=== PATIENT | female | born 1935 | race Caucasian/White ===

== ENCOUNTER 2017-01-02 11:48 | Emergency (ER) | payer MEDICARE, OTHER ==
[~2017-01-02] VITALS: Ht 152.4 cm; Wt 53.1 kg
[~2017-01-02 11:48] MED LIST: ACET-2429 PO; AMIO200T2 PO; APIX2.5T PO; ASP81TEC PO; ATEN25TA PO; BONIVA; CA C1TAB75 PO; CALC-80 PO; CAND1TAB4; CHOL400C9 PO; CHONDROITIN PO; CLIN300C11 PO; CLON-378 PO; CLOP75TA PO; CLOP75TA28 PO; DOCU-161 PO; GABA-490 PO; GBPN100C PO; GLUC1CAP37 PO; GLUC500C2 PO; LOSA1TAB69 PO; MULT-10 PO; NAPR220T76; OMG1KC PO; PANT40TA2 PO; POTASSIUM; ROSU5TAB; STRESS TAB; TRAM50TA2 PO; VIT E PO; VITA400C60 PO
[2017-01-02] MEDS ORDERED: TETANUS,DIPTH,PERTUSS P/F (BOOSTRIX) 0.5 ML VIAL IM ONE (12:00)
[2017-01-02] MEDS ORDERED: LIDOCAINE/EPI 1%-1:100,000 (XYLOCAINE) 20ML INJ ONE (12:00)
--- NOTE | 2017-01-02 12:07 | ED Fall/Injury ---
General Chief Complaint: Trauma-Non Activation Stated Complaint: FALL/HEAD LAC Source: patient Exam Limitations: no limitations (KVNG ALVARADO MD) History of Present Illness Time seen by provider: 11:52 Initial Comments Here with fall at about 1030 this morning off her back step. She reports hitting the left side of her head. She is unsure of loss of consciousness. Does complain of some left-sided neck pain but states she normally has neck pain. She thinks that she was dazed and really is not sure about loss of consciousness. Denies other pain or injury. Unsure of tetanus status. She is on Eliquis Occurred: this morning Severity: moderate Injuries/Pain Location: head Context: lost balance Loss of Consciousness: dazed Associated Symptoms (Fall): No Abdominal Pain, No Chest Pain, No Confusion, No Lightheadedness, No Muscle Spasms, Neck Pain, No Shortness of Air (KVNG ALVARADO MD) Allergies and Home Medications Allergies Coded Allergies: Penicillins (Unverified Allergy, Mild, 07/16/09) Sulfa (Sulfonamide Antibiotics) (Unverified Allergy, Unknown, 12/14/15) Home Medications Amiodarone HCl 200 Mg Tablet, 200 MG PO BID, #60 Prescribed by: GLENYS BARTLETT on 01/06/16 1254 Apixaban 2.5 Mg Tablet, 2.5 MG PO BID, #60 Prescribed by: GLENYS BARTLETT on 01/06/16 1254 Atenolol 25 Mg Tablet, 25 MG PO HS, (Reported) Gabapentin 400 Mg Capsule, 400 MG PO HS, (Reported) Hydrochlorothiazide 12.5 Mg Tablet, #30 (Reported) Pantoprazole Sodium 40 Mg Tablet.dr, 40 MG PO BID, #60 Prescribed by: GLENYS BARTLETT on 01/06/16 1254 Potassium Chloride 10 Meq Tablet.er, #30 (Reported) Constitutional: see HPI, No chills, No fever Eyes: No Symptoms Reported Ears, Nose, Mouth, Throat: no symptoms reported Respiratory: no symptoms reported Cardiovascular: no symptoms reported Musculoskeletal: see HPI, No back pain, neck pain Skin: see HPI, lesions (KVNG ALVARADO MD) All Other Systems Reviewed Negative Unless Noted: Yes (KVNG ALVARADO MD) Past Elrmwsx-Uvlpdt-Ttxogy Hx Patient Social History Alcohol Use: Denies Use Recreational Drug Use: No Smoking Status: Never a Smoker Recent Foreign Travel: No Contact w/Someone Who Travel: No (KVNG ALVARADO MD) Immunizations Up To Date Tetanus Booster (TDap): More than 5yrs PED Vaccines UTD: No Date of Pneumonia Vaccine: Sep 03, 2011 Date of Influenza Vaccine: Jun 03, 2015 (KVNG ALVARADO MD) Seasonal Allergies Seasonal Allergies: No (KVNG ALVARADO MD) Surgeries HX Surgeries: Yes (stents in 07, LT SHOULDER) Surgeries: Hysterectomy, Orthopedic (KVNG ALVARADO MD) Respiratory Hx Respiratory Disorders: No (KVNG ALVARADO MD) Cardiovascular Hx Cardiac Disorders: Yes (stent placed in 2006) Cardiac Disorders: Atrial Fibrillation, Coronary Artery Disease (KVNG ALVARADO MD) Neurological Hx Neurological Disorders: Yes Neurological Disorders: TIA (KVNG ALVARADO MD) Reproductive System Hx Reproductive Disorders: No Sexually Transmitted Disease: No (KVNG ALVARADO MD) Genitourinary Hx Genitourinary Disorders: No (KVNG ALVARADO MD) Gastrointestinal Hx Gastrointestinal Disorders: No (KVNG ALVARADO MD) Musculoskeletal Hx Musculoskeletal Disorders: Yes Musculoskeletal Disorders: Arthritis (KVNG ALVARADO MD) Endocrine Hx Endocrine Disorders: No (KVNG ALVARADO MD) HEENT HX ENT Disorders: Yes HEENT Disorders: Cataract (KVGN ALVARADO MD) Cancer Hx Cancer: No (KVNG ALVARADO MD) Psychosocial Hx Psychiatric Problems: No (KVNG ALVARADO MD) Integumentary HX Skin/Integumentary Disorder: No (KVNG ALVARADO MD) Blood Transfusions Hx Blood Disorders: No (KVNG ALVARADO MD) Reviewed Nursing Assessment Reviewed/Agree w Nursing PMH: Yes (KVNG ALVARADO MD) Family Medical History Significant Family History: No Pertinent Family Hx Family Medial History: Arthritis 19 FATHER, Onset:Unknown Cardiovascular disease 19 FATHER, Onset:Unknown 19 MOTHER, Onset:Unknown Completed stroke 19 MOTHER, Onset:Unknown Diabetes mellitus 19 FATHER, Onset:Unknown (KVNG ALVARADO MD) Family Medial History: Arthritis 19 FATHER, Onset:Unknown Cardiovascular disease 19 FATHER, Onset:Unknown 19 MOTHER, Onset:Unknown Completed stroke 19 MOTHER, Onset:Unknown Diabetes mellitus 19 FATHER, Onset:Unknown (JOSÉ DURAN APRN) Physical Exam Vital Signs Vital Sign - Last 12Hours 01/02/17 11:57 Temp 97.8 Pulse 56 Resp 20 B/P (MAP) 143/71 Pulse Ox 99 O2 Delivery Room Air (JOSÉ DURAN APRN) Vital Signs Capillary Refill : (KVNG ALVARADO MD) General Appearance: WD/WN, no apparent distress HEENT: PERRL/EOMI, pharynx normal Neck: non-tender, full range of motion, supple, normal inspection Cardiovascular: regular rate, rhythm, no murmur Respiratory: chest non-tender, lungs clear, normal breath sounds Gastrointestinal: non tender, soft Back: normal inspection, no CVA tenderness, no vertebral tenderness Extremities: normal range of motion, non-tender Neurologic/Psychiatric: alert, oriented x 3 Skin: warm/dry, other (2 cm laceration to the left side of the scalp behind and above the ear.) (KVNG ALVARADO MD) Margarita Coma Score Best Eye Response: (4) Open Spontaneously Best Verbal Response: (5) Oriented Best Motor Response: (6) Obeys Commands (KVNG ALVARADO MD) Laceration Repair : Wound Location: Scalp Wound Length (cm): 2 Wound's Depth, Shape: linear Wound Explored: clean Irrigated w/ Saline (ccs): 20 Anesthesia: Lidocaine w/ Epi Volume Anesthetic (ccs): 2 Staple Repair: Stapler 35W Progress Anesthetized with 2 mL of 1 percent lidocaine with epinephrine. Scrubbed with saline and irrigated with saline. Then closed with 5 domonique. (JOSÉ DURAN APRN) Progress/Results/Core Measures Results/Orders My Orders Orders - JOSÉ DURAN APRN Dipht,Pertuss(Acell),Tet Adult (Boostrix (01/02/17 12:00) Lidocaine/Epi 1% 1:100,000 (Xylocaine /E (01/02/17 12:00) Ct Head/Cervical Spine Wo (01/02/17 11:59) (JOSÉ DURAN APRN) Vital Signs/I&O Vital Sign - Last 12Hours 01/02/17 01/02/17 11:57 12:33 Temp 97.8 97.8 Pulse 56 56 Resp 20 20 B/P (MAP) 143/71 143/71 (95) Pulse Ox 99 99 O2 Delivery Room Air Room Air (JOSÉ DURAN APRN) Progress Note : Progress Note Seen and evaluated. CT head and neck ordered. Tetanus shot ordered. Monitor patient. 1305: Wound closure by José Duran APRN. No acute findings on CT but chronic degenerative changes of the neck which would account for her chronic neck pain. Discharged home with return precautions. Patient and family verbalize understanding instructions and agreement with plan. I did discuss with the patient about following up with her primary care physician related to increasing falls. She states that she does fall sometimes that the family member reports that it seems to be more often recently. Patient states that she will follow-up. Copy of chart Dr. Bartlett. (KVNG ALVARADO MD) Diagnostic Imaging Diagonstic Imaging: CT Plain Films/CT/US/NM/MRI: c-spine, head Comments [place], [place] NAME: BRITTANEY [facility] REC#: [id number] PT STATUS: REG ER : 1935 PHYSICIAN: JOSÉ DURAN APRN ADMIT DATE: 01/02/17/ER Draft Date of Exam:01/02/17 CT HEAD/CERVICAL SPINE WO PROCEDURE: CT head and CT cervical spine without contrast. TECHNIQUE: Multiple contiguous axial images were obtained through the brain and cervical spine without the use of intravenous contrast. Sagittal and coronal reformations through the cervical spine were then performed. INDICATION: Laceration to the left side of the head. Headache, neck stiffness. FINDINGS: CT head: There is no intracranial hemorrhage, edema, or mass effect. No hydrocephalus. No extra-axial fluid collection. The calvarium, the paranasal sinuses, and orbits appear grossly unremarkable. CT cervical spine: There is straightening of the lordotic curvature. There is minimal anterior translation of C4 over C5 and minimal anterior translation of C7 over T1. The vertebral body heights are preserved. There is moderate disc height loss at C5-C6 and C6-C7 levels. Posterior osteophytes at these two levels are seen. There is satisfactory alignment of the lateral masses of C1 and C2 and of the atlantooccipital joints. There is ligamentous thickening and ossification seen along the posterior aspect of the dens with some bony erosions that may relate to inflammatory arthritis etiology. No fracture is seen. There is moderate/ severe foraminal stenosis bilaterally at C4-C5, C5-C6, and C6-C7 levels. IMPRESSION: CT head: Unremarkable exam. CT cervical spine: 1. Advanced degenerative changes. There are alignment abnormalities in the mid cervical spine levels which are probably degenerative. 2. There is ligamentous hypertrophy posterior to the upper aspect of the dens with ossification and mild erosions, may relate to inflammatory arthritis etiology. 3. No fracture seen. Dictated on workstation # [id number] Dict: 01/02/17 1224 Trans: 01/02/17 1243 [id number] Interpreted by: MARTÍNEZ MONACO MD Electronically signed by: (KVNG ALVARADO MD) Departure Impression Impression: Primary Impression: Scalp laceration Qualified Codes: S01.01XA - Laceration without foreign body of scalp, initial encounter Additional Impression: Head injury, acute Qualified Codes: S09.90XA - Unspecified injury of head, initial encounter Disposition: 01 HOME, SELF-CARE Condition: Stable Departure-Patient Inst. Decision time for Depature: 13:07 (KVNG ALVARADO MD) Referrals: GLENYS BARTLETT DO (PCP/Family) Primary Care Physician Patient Instructions: Laceration Repair With [place] (DC), Minor Head Injury ( DC) Add. Discharge Instructions: All discharge instructions reviewed with patient and/or family. Voiced understanding. [place] out in 7 days. You may use antibiotic ointment over wound for the next few days and then as needed. It is okay to shower but do not soak wound in a bathtub or other body of water. Follow-up with your DrDonn in a few days for recheck as needed. Return for worse pain, fever, swelling, weakness, vision or balance problems, breathing problems or other concerns as needed. You may continue home medications as directed. Copy Copies To 1: GLENYS BARTLETT TIMOTHY D MD January 02, 2017 12:07 JOSÉ DURAN APRN January 02, 2017 13:12
[2017-01-02] MEDS ORDERED: POTA10TA10 (12:10)
[2017-01-02] MEDS ORDERED: HYDR12.56 (12:10)
--- NOTE | 2017-01-02 12:44 | Diagnostic Imaging Report ---
PROCEDURE: CT head and CT cervical spine without contrast. TECHNIQUE: Multiple contiguous axial images were obtained through the brain and cervical spine without the use of intravenous contrast. Sagittal and coronal reformations through the cervical spine were then performed. INDICATION: Laceration to the left side of the head. Headache, neck stiffness. FINDINGS: CT head: There is no intracranial hemorrhage, edema, or mass effect. No hydrocephalus. No extra-axial fluid collection. The calvarium, the paranasal sinuses, and orbits appear grossly unremarkable. CT cervical spine: There is straightening of the lordotic curvature. There is minimal anterior translation of C4 over C5 and minimal anterior translation of C7 over T1. The vertebral body heights are preserved. There is moderate disc height loss at C5-C6 and C6-C7 levels. Posterior osteophytes at these two levels are seen. There is satisfactory alignment of the lateral masses of C1 and C2 and of the atlantooccipital joints. There is ligamentous thickening and ossification seen along the posterior aspect of the dens with some bony erosions that may relate to inflammatory arthritis etiology. No fracture is seen. There is moderate/ severe foraminal stenosis bilaterally at C4-C5, C5-C6, and C6-C7 levels. IMPRESSION: CT head: Unremarkable exam. CT cervical spine: 1. Advanced degenerative changes. There are alignment abnormalities in the mid cervical spine levels which are probably degenerative. 2. There is ligamentous hypertrophy posterior to the upper aspect of the dens with ossification and mild erosions, may relate to inflammatory arthritis etiology. 3. No fracture seen. Dictated by: Dictated on workstation # [id number]
[2017-01-02 13:31] VITALS: BP 132/84
== END 2017-01-02 13:30 | disposition home or self-care (01) ==
LOC: EDUNIT# 11:48 → ER 11:50
DX: S01.01XA Laceration without foreign body of scalp, initial encounter (principal); Z23 Encounter for immunization; M47.812 Spondylosis without myelopathy or radiculopathy, cervical region; M48.02 Spinal stenosis, cervical region; I25.10 Atherosclerotic heart disease of native coronary artery without angina pectoris; I48.2 Chronic atrial fibrillation; Z79.01 Long term (current) use of anticoagulants; Z79.899 Other long term (current) drug therapy; W10.9XXA Fall (on) (from) unspecified stairs and steps, initial encounter; Y99.8 Other external cause status
CPT/HCPCS: 70450; 72125; 90471; 90715

== ENCOUNTER → 2017-01-09 | Emergency (ER) | payer MEDICARE, OTHER ==
[~2017-01-09] VITALS: Ht 152.4 cm; Wt 53.1 kg
[~2017-01-09] MED LIST changes: +HYDR12.56; +POTA10TA10
[2017-01-09 11:50] VITALS: BP 136/61
== END | disposition home or self-care (01) ==
LOC: EDUNIT# 11:33 → ER 11:36
DX: S01.01XD Laceration without foreign body of scalp, subsequent encounter (principal)

== ENCOUNTER 2017-02-02 12:12 | Emergency (ER) | payer MEDICARE, OTHER ==
[~2017-02-02] VITALS: Ht 152.4 cm; Wt 53.1 kg
--- NOTE | 2017-02-02 12:53 | ED Fall/Injury ---
General Chief Complaint: Trauma-Non Activation Stated Complaint: FALL-HEAD/L SHOULDER/L KNEE INJ Nursing Triage Note: patient reports falling and hitting her head between 1015, patient reports having numerous falls recenlty. patient c/o bruising to L knee and pain in L shoulder. patient denies LOC or neck pain. Source: patient, family Exam Limitations: no limitations History of Present Illness Time seen by provider: 12:27 Initial Comments This 81-year-old woman presents to the emergency room after having a fall around 10:00 this morning and striking her head on the kitchen floor. She denies any prodrome or loss of consciousness. She denies any neck pain. She is accompanied by her son. She apparently has had numerous falls in the last couple of months resulting in injury. Today she has ecchymosis and a small laceration over the left temporal region. She also has swelling and ecchymosis over the left lateral knee that is rather tender to palpation. Cause of falls is not certain. She is receiving physical therapy for strength and coordination training. She reports some headache and nausea. She is alert and oriented. She has a chronic tremor of the left face. She is anticoagulated for paroxysmal A. fib. She did not take her Eliquis dose this morning. She has some minor left shoulder pain as well. Allergies and Home Medications Allergies Coded Allergies: Penicillins (Unverified Allergy, Mild, 07/16/09) Sulfa (Sulfonamide Antibiotics) (Unverified Allergy, Unknown, 12/14/15) Home Medications Amiodarone HCl 200 Mg Tablet, 200 MG PO BID, #60 Prescribed by: GELNYS BARTLETT on 01/06/16 1254 Apixaban 2.5 Mg Tablet, 2.5 MG PO BID, #60 Prescribed by: GLENYS BARTLETT on 01/06/16 1254 Atenolol 25 Mg Tablet, 25 MG PO HS, (Reported) Gabapentin 400 Mg Capsule, 400 MG PO HS, (Reported) Hydrochlorothiazide 12.5 Mg Tablet, #30 (Reported) Nitrofurantoin Monohyd/M-Cryst 100 Mg Capsule, 1 TAB PO BID, #10 Prescribed by: TIM VÁZQUEZ on 02/02/17 1455 Pantoprazole Sodium 40 Mg Tablet.dr, 40 MG PO BID, #60 Prescribed by: GLENYS BARTLETT on 01/06/16 1254 Potassium Chloride 10 Meq Tablet.er, #30 (Reported) Constitutional: no symptoms reported Eyes: No Symptoms Reported Ears, Nose, Mouth, Throat: no symptoms reported Respiratory: no symptoms reported Cardiovascular: no symptoms reported Gastrointestinal: see HPI Genitourinary: no symptoms reported : No Musculoskeletal: see HPI Skin: see HPI Psychiatric/Neurological: See HPI Past Ehlxojk-Wecmxz-Aaljhv Hx Patient Social History Alcohol Use: Denies Use Recreational Drug Use: No Smoking Status: Never a Smoker 2nd Hand Smoke Exposure: No Recent Foreign Travel: No Contact w/Someone Who Travel: No Recent Infectious Disease Expo: No Recent Hopitalizations: No Immunizations Up To Date Tetanus Booster (TDap): More than 5yrs PED Vaccines UTD: No Date of Pneumonia Vaccine: Sep 03, 2011 Date of Influenza Vaccine: Jun 03, 2015 Seasonal Allergies Seasonal Allergies: No Surgeries HX Surgeries: Yes (stents in , LT SHOULDER) Surgeries: Hysterectomy, Orthopedic Respiratory Hx Respiratory Disorders: No Cardiovascular Hx Cardiac Disorders: Yes (stent placed in 2006) Cardiac Disorders: Atrial Fibrillation, Coronary Artery Disease Neurological Hx Neurological Disorders: Yes (chronic tremor of left face) Neurological Disorders: TIA Reproductive System Hx Reproductive Disorders: No Sexually Transmitted Disease: No Genitourinary Hx Genitourinary Disorders: No Gastrointestinal Hx Gastrointestinal Disorders: No Musculoskeletal Hx Musculoskeletal Disorders: Yes Musculoskeletal Disorders: Arthritis Endocrine Hx Endocrine Disorders: No HEENT HX ENT Disorders: Yes HEENT Disorders: Cataract Cancer Hx Cancer: No Psychosocial Hx Psychiatric Problems: No Integumentary HX Skin/Integumentary Disorder: No Blood Transfusions Hx Blood Disorders: No Family Medical History Significant Family History: No Pertinent Family Hx Family Medial History: Arthritis 19 FATHER, Onset:Unknown Cardiovascular disease 19 FATHER, Onset:Unknown 19 MOTHER, Onset:Unknown Completed stroke 19 MOTHER, Onset:Unknown Diabetes mellitus 19 FATHER, Onset:Unknown Physical Exam Vital Signs Vital Sign - Last 12Hours 02/02/17 12:28 Temp 98.2 Pulse 56 Resp 18 B/P (MAP) 173/103 Pulse Ox 96 O2 Delivery Room Air Capillary Refill : Less Than 3 Seconds General Appearance: WD/WN HEENT: PERRL/EOMI, TMs normal, pharynx normal, other (ecchymosis, edema, and minor laceration to the left temporal region) Neck: non-tender, full range of motion, supple, normal inspection Cardiovascular: regular rate, rhythm, no edema, no murmur Respiratory: lungs clear, normal breath sounds, no respiratory distress, no accessory muscle use Gastrointestinal: normal bowel sounds, non tender, soft Extremities: no pedal edema, other (swelling and ecchymosis with tenderness to the left lateral knee) Neurologic/Psychiatric: manager clinical applications II-XII nml as tested, no motor/sensory deficits, alert, normal mood/affect, oriented x 3, other (tremoring of the left face) Skin: normal color, warm/dry, ecchymosis Circle Coma Score Best Eye Response: (4) Open Spontaneously Best Verbal Response: (5) Oriented Best Motor Response: (6) Obeys Commands Circle Total: 15 Progress/Results/Core Measures Results/Orders Lab Results Laboratory Tests Test 02/02/17 12:50 02/02/17 14:05 Range/Units White Blood Count 7.2 4.3-11.0 10^3/uL Red Blood Count 4.01 L 4.35-5.85 10^6/uL Hemoglobin 12.4 11.5-16.0 G/DL Hematocrit 38 35-52 % Mean Corpuscular Volume 94 80-99 FL Mean Corpuscular Hemoglobin 31 25-34 PG Mean Corpuscular Hemoglobin Concent 33 32-36 G/DL Red Cell Distribution Width 15.2 H 10.0-14.5 % Platelet Count 215 130-400 10^3/uL Mean Platelet Volume 10.7 H 7.4-10.4 FL Neutrophils (%) (Auto) 71 42-75 % Lymphocytes (%) (Auto) 19 12-44 % Monocytes (%) (Auto) 8 0-12 % Eosinophils (%) (Auto) 1 0-10 % Basophils (%) (Auto) 0 0-10 % Neutrophils # (Auto) 5.1 1.8-7.8 X 10^3 Lymphocytes # (Auto) 1.4 1.0-4.0 X 10^3 Monocytes # (Auto) 0.6 0.0-1.0 X 10^3 Eosinophils # (Auto) 0.1 0.0-0.3 10^3/uL Basophils # (Auto) 0.0 0.0-0.1 10^3/uL Sodium Level 140 135-145 MMOL/L Potassium Level 4.5 3.6-5.0 MMOL/L Chloride Level 108 H 98-107 MMOL/L Carbon Dioxide Level 21 21-32 MMOL/L Anion Gap 11 5-14 MMOL/L Blood Urea Nitrogen 18 7-18 MG/DL Creatinine 0.97 0.60-1.30 MG/DL Estimat Glomerular Filtration Rate 55 BUN/Creatinine Ratio 19 Glucose Level 102 70-105 MG/DL Calcium Level 9.1 8.5-10.1 MG/DL Magnesium Level 2.2 1.8-2.4 MG/DL Total Bilirubin 0.6 0.1-1.0 MG/DL Aspartate Amino Transf (AST/SGOT) 103 H 5-34 U/L Alanine Aminotransferase (ALT/SGPT) 117 H 0-55 U/L Alkaline Phosphatase 94 40-136 U/L Troponin I < 0.30 <0.30 NG/ML Total Protein 6.7 6.4-8.2 G/DL Albumin 3.7 3.2-4.5 G/DL Urine Color YELLOW Urine Clarity CLEAR Urine pH 6 5-9 Urine Specific [place] 1.015 L 1.016-1.022 Urine Protein 1+ H NEGATIVE Urine Glucose (UA) NEGATIVE NEGATIVE Urine Ketones NEGATIVE NEGATIVE Urine Nitrite NEGATIVE NEGATIVE Urine Bilirubin NEGATIVE NEGATIVE Urine Urobilinogen NORMAL NORMAL MG/DL Urine Leukocyte Esterase 2+ H NEGATIVE Urine RBC (Auto) 1+ H NEGATIVE Urine RBC NONE /HPF Urine WBC 2-5 /HPF Urine Squamous Epithelial Cells 0-2 /HPF Urine Crystals NONE /LPF Urine Bacteria MODERATE H /HPF Urine Casts NONE /LPF Urine Mucus NEGATIVE /LPF Urine Culture Indicated YES My Orders Orders - TIM SOW MD Cbc With Automated Diff (02/02/17 12:36) Comprehensive Metabolic Panel (02/02/17 12:36) Magnesium (02/02/17 12:36) Troponin I (02/02/17 12:36) Ua Culture If Indicated (02/02/17 12:36) Saline Lock/Iv-Start (02/02/17 12:36) Ekg Tracing (02/02/17 12:36) Monitor-Rhythm Ecg Trace Only (02/02/17 12:36) Knee, Left, 3 Views (02/02/17 12:36) Ct Head/Cervical Spine Wo (02/02/17 12:36) Orthostatic Vital Signs (02/02/17 12:38) Urine Culture (02/02/17 14:05) Vital Signs/I&O Vital Sign - Last 12Hours 02/02/17 02/02/17 02/02/17 12:28 12:51 15:04 Temp 98.2 98.2 Pulse 56 56 56 56 56 Resp 18 20 B/P (MAP) 173/103 Pulse Ox 96 98 O2 Delivery Room Air Blood Pressure Mean: 126 Progress Note : Progress Note King revealed no injury requiring treatment. There was a small laceration on the left temporal region that did not require repair. I discussed the situation with patient and her son. I advised they have a serious conversation with Dr. Bartlett and/or their mine safety manager regarding continued Eliquis use as patient is at risk for bleed related to her falls. I also advised continued physical therapy and ambulation only with a walker. Patient and son expressed understanding. Urinary tract infection was treated with a prescription. ECG Initial ECG Impression Date: Feb 02, 2017 Initial ECG Impression Time: 12:43 Initial ECG Rate: 54 Initial ECG Rhythm: Normal Sinus Comment Normal sinus rhythm with no ST elevation or depression. No abnormal intervals or axis deviation. Diagnostic Imaging Diagonstic Imaging: CT Plain Films/CT/US/NM/MRI: c-spine, head Comments CT head and C-spine viewed by me and report reviewed. See report below: NAME: BRITTANEY TONG [facility] REC#: [id number] PT STATUS: REG ER : 1935 PHYSICIAN: TIM SOW MD ADMIT DATE: 02/02/17/ER Draft Date of Exam:02/02/17 CT HEAD/CERVICAL SPINE WO CLINICAL INDICATION: Patient has a history of multiple falls. Today hit left side of head. Patient complains of neck pain not due to fall today. EXAM: Head CT without IV contrast. Axial CT scan of the cervical spine with sagittal and coronal reformations. COMPARISON: CT scan of the cervical spine and head dated 01/02/2017. FINDINGS: Head CT: There is no evidence of acute cerebral infarct, intracranial hemorrhage, or gross mass effect. There is no significant change to the focal and patchy areas of low-attenuation white matter changes throughout both cerebral hemispheres, likely representing chronic small vessel ischemic disease. There is normal valenzuela-white matter distinction. The brain parenchymal volume appears appropriate for patient's age. There is no significant midline shift or herniation. There is no evidence of hydrocephalus. The basal cisterns are unremarkable. There is interval development of a small area of extracranial soft tissue swelling and subcutaneous air involving the left anterior aspect of the head near the lateral wall of the orbit likely related to recent trauma and possible laceration. There is no skull fracture. The skull, extracranial soft tissue, and orbits are unremarkable. The paranasal sinuses are unremarkable. Cervical spine: There is no evidence of acute cervical spine fracture. There is no significant change to the multilevel cervical spine degenerative disease with hypertrophic vertebral body spurs and facet arthropathy. There is grade 1 anterolisthesis of C4 on C5 and C7 on T1 with no pars defect seen, likely degenerative. Again seen roughly 1.6 cm nodule in the right thyroid gland. There is a smaller hypodense nodule in the right thyroid gland as well. Remainder of the neck soft tissue structures show no other significant abnormality. Visualized lung apices are clear. IMPRESSION: 1: There is no evidence of acute intracranial process. 2: There is a small amount of extracranial soft tissue swelling with suspected laceration involving the left anterior aspect of the head by the lateral wall of the left orbit. There is no skull fracture. 3: Stable cervical spine degenerative disease with no acute fracture. Dictated on workstation # [id number] Dict: 02/02/17 1338 Trans: 02/02/17 1353 [place] [id number] Interpreted by: YU HOLLIDAY MD Diagonstic Imaging: Xray Plain Films/CT/US/NM/MRI: knee Comments Left knee x-ray viewed by me and report reviewed. See report below: NAME: BRITTANEY TONG [facility] REC#: [id number] PT STATUS: REG ER : 1935 PHYSICIAN: TIM SOW MD ADMIT DATE: 02/02/17/ER Draft Date of Exam:02/02/17 KNEE, LEFT, 3 VIEWS INDICATION: Fall with left knee pain. AP, oblique, and lateral views of the left knee are obtained. FINDINGS: There is severe medial and lateral joint space narrowing with osteophyte formation and diffuse irregularity. There is severe patellofemoral spurring and joint space narrowing. There is no acute fracture or acute bony abnormality. IMPRESSION: Severe osteoarthritic changes of the left knee with no acute bony abnormality. Dictated on workstation # [id number] Dict: 02/02/17 1330 Trans: 02/02/17 1333 [facility] [id number] Interpreted by: EMELY MAYNARD MD Departure Impression Impression: Primary Impression: Frequent falls Additional Impressions: Urinary tract infection Qualified Codes: N39.0 - Urinary tract infection, site not specified Generalized weakness Facial contusion Qualified Codes: S00.83XA - Contusion of other part of head, initial encounter Facial laceration Qualified Codes: S01.81XA - Laceration without foreign body of other part of head, initial encounter Disposition: 01 HOME, SELF-CARE Condition: Stable/Unchanged Departure-Patient Inst. Decision time for Depature: 14:45 Referrals: GLENYS BARTLETT DO (PCP/Family) Primary Care Physician Patient Instructions: Contusion (DC), Preventing Falls in the Older Adult, Urinary Tract Infection, Adult (DC) Add. Discharge Instructions: Drink plenty of clear liquids and complete your antibiotic as prescribed. Always use your walker when ambulating for safety. Continue with physical therapy as prescribed. Up with Dr. Bartlett early next week to review urine culture results. Discuss with Dr. Bartlett and/or your mine safety manager whether or not to continue Eliquis as your frequent falls make use of anticoagulation medications risky. All discharge instructions reviewed with patient and/or family. Voiced understanding. Scripts Nitrofurantoin Monohyd/M-Cryst (Macrobid 100 mg Capsule) 100 Mg Capsule 1 TAB PO BID, #10 CAP Prov: TIM SOW MD 02/02/17 Copy Copies To 1: GLENYS BARTLETT JOSHUA T MD Feb 02, 2017 12:53
[2017-02-02 13:10] LABS: BASOPHILS % (AUTO) 0 % (0-10); EOSINOPHILS # (AUTO) 0.1 10^3/uL (0.0-0.3); EOSINOPHILS % (AUTO) 1 % (0-10); LYMPHOCYTES # (AUTO) 1.4 X 10^3 (1.0-4.0); LYMPHOCYTES % (AUTO) 19 % (12-44); MEAN CORPUSCULAR HEMOGLOBIN 31 PG (25-34); MEAN CORPUSCULAR HGB CONC 33 G/DL (32-36); MEAN CORPUSCULAR VOLUME 94 FL (80-99); MEAN PLATELET VOLUME 10.7 FL (7.4-10.4); MONOCYTES # (AUTO) 0.6 X 10^3 (0.0-1.0); MONOCYTES % (AUTO) 8 % (0-12); NEUTROPHILS # (AUTO) 5.1 X 10^3 (1.8-7.8); NEUTROPHILS % (AUTO) 71 % (42-75); PLATELET COUNT 215 10^3/uL (130-400); RED BLOOD COUNT 4.01 10^6/uL (4.35-5.85); RED CELL DISTRIBUTION WIDTH 15.2 % (10.0-14.5); WHITE BLOOD COUNT 7.2 10^3/uL (4.3-11.0)
[2017-02-02 13:25] LABS: ALANINE AMINOTRANSFERASE 117 U/L (0-55); ALBUMIN 3.7 G/DL (3.2-4.5); ANION GAP 11 MMOL/L (5-14); ASPARTATE AMINO TRANSFERASE 103 U/L (5-34); BILIRUBIN,TOTAL 0.6 MG/DL (0.1-1.0); BLOOD UREA NITROGEN 18 MG/DL (7-18); BUN/CREATININE RATIO 19; CALCIUM 9.1 MG/DL (8.5-10.1); CARBON DIOXIDE 21 MMOL/L (21-32); CHLORIDE 108 MMOL/L (98-107); CREATININE SERUM 0.97 MG/DL (0.60-1.30); GFR ESTIMATED 55; GLUCOSE 102 MG/DL (70-105); MAGNESIUM 2.2 MG/DL (1.8-2.4); POTASSIUM 4.5 MMOL/L (3.6-5.0); SODIUM 140 MMOL/L (135-145); TOTAL PROTEIN 6.7 G/DL (6.4-8.2)
[2017-02-02 13:30] LABS: TROPONIN I < 0.30 NG/ML (<0.30)
--- NOTE | 2017-02-02 13:34 | Diagnostic Imaging Report ---
INDICATION: Fall with left knee pain. AP, oblique, and lateral views of the left knee are obtained. FINDINGS: There is severe medial and lateral joint space narrowing with osteophyte formation and diffuse irregularity. There is severe patellofemoral spurring and joint space narrowing. There is no acute fracture or acute bony abnormality. IMPRESSION: Severe osteoarthritic changes of the left knee with no acute bony abnormality. Dictated by: Dictated on workstation # [id number]
--- NOTE | 2017-02-02 13:53 | Diagnostic Imaging Report ---
CLINICAL INDICATION: Patient has a history of multiple falls. Today hit left side of head. Patient complains of neck pain not due to fall today. EXAM: Head CT without IV contrast. Axial CT scan of the cervical spine with sagittal and coronal reformations. COMPARISON: CT scan of the cervical spine and head dated 01/02/2017. FINDINGS: Head CT: There is no evidence of acute cerebral infarct, intracranial hemorrhage, or gross mass effect. There is no significant change to the focal and patchy areas of low-attenuation white matter changes throughout both cerebral hemispheres, likely representing chronic small vessel ischemic disease. There is normal valenzuela-white matter distinction. The brain parenchymal volume appears appropriate for patient's age. There is no significant midline shift or herniation. There is no evidence of hydrocephalus. The basal cisterns are unremarkable. There is interval development of a small area of extracranial soft tissue swelling and subcutaneous air involving the left anterior aspect of the head near the lateral wall of the orbit likely related to recent trauma and possible laceration. There is no skull fracture. The skull, extracranial soft tissue, and orbits are unremarkable. The paranasal sinuses are unremarkable. Cervical spine: There is no evidence of acute cervical spine fracture. There is no significant change to the multilevel cervical spine degenerative disease with hypertrophic vertebral body spurs and facet arthropathy. There is grade 1 anterolisthesis of C4 on C5 and C7 on T1 with no pars defect seen, likely degenerative. Again seen roughly 1.6 cm nodule in the right thyroid gland. There is a smaller hypodense nodule in the right thyroid gland as well. Remainder of the neck soft tissue structures show no other significant abnormality. Visualized lung apices are clear. IMPRESSION: 1: There is no evidence of acute intracranial process. 2: There is a small amount of extracranial soft tissue swelling with suspected laceration involving the left anterior aspect of the head by the lateral wall of the left orbit. There is no skull fracture. 3: Stable cervical spine degenerative disease with no acute fracture. Dictated by: Dictated on workstation # [id number]
[2017-02-02 14:23] LABS: BILIRUBIN,URINE NEGATIVE (NEGATIVE); KETONES,URINE NEGATIVE (NEGATIVE); LEUKOCYTE ESTERASE ,URINE 2+ (NEGATIVE); NITRITE,URINE NEGATIVE (NEGATIVE); PH,URINE 6 (5-9); PROTEIN,URINE 1+ (NEGATIVE); UROBILINOGEN,URINE NORMAL (NORMAL)
[2017-02-02 14:36] LABS: SQUAMOUS EPITHELIAL CELL,UR 0-2 /HPF
[2017-02-02] MEDS ORDERED: NITR-65 PO (14:55)
[2017-02-02 15:04] VITALS: BP 162/85
== END 2017-02-02 15:04 | disposition home or self-care (01) ==
LOC: EDUNIT# 12:12 → ER 12:15
DX: S01.01XA Laceration without foreign body of scalp, initial encounter (principal); S80.02XA Contusion of left knee, initial encounter; M17.12 Unilateral primary osteoarthritis, left knee; N39.0 Urinary tract infection, site not specified; R53.1 Weakness; R29.6 Repeated falls; I25.10 Atherosclerotic heart disease of native coronary artery without angina pectoris; I48.0 Paroxysmal atrial fibrillation; Z79.01 Long term (current) use of anticoagulants; Z79.899 Other long term (current) drug therapy; W01.0XXA Fall on same level from slipping, tripping and stumbling without subsequent striking against object, initial encounter; Y92.009 Unspecified place in unspecified non-institutional (private) residence as the place of occurrence of the external cause; Y99.8 Other external cause status
CPT/HCPCS: 36415; 70450; 72125; 73562; 80053; 81000; 83735; 84484; 85025; 87077; 87088; 87186

== ENCOUNTER → 2017-02-13 | Outpatient (CLI) | payer MEDICARE, OTHER ==
[~2017-02-13] MED LIST changes: +NITR-65 PO
== END ==
LOC: CARD 09:56
PROVIDERS: ATTEND Family Medicine
DX: I48.0 Paroxysmal atrial fibrillation (principal)
CPT/HCPCS: 93225; 93226

== ENCOUNTER → 2017-02-26 | Outpatient (CLI) | payer MEDICARE, OTHER ==
[~2017-02-26] VITALS: Ht 152.4 cm; Wt 53.1 kg
[~2017-02-26] MED LIST changes: +CALC-6 PO; +DENOSUMAB 60 MG/1 ML (PROLIA) SQ SCH; +DOCU100C37 PO; +GLUC-115 PO; +VITA400C58 PO
[2017-02-26 13:10] VITALS: BP 132/65
== END ==
LOC: SDC 13:05
PROVIDERS: ATTEND Family Medicine
DX: M81.0 Age-related osteoporosis without current pathological fracture (principal)
CPT/HCPCS: 96372

== ENCOUNTER 2017-03-13 15:15 | Outpatient (RCR) | payer MEDICARE, OTHER ==
[~2017-03-13 15:15] MED LIST changes: -DENOSUMAB 60 MG/1 ML (PROLIA) SQ SCH; +LOSA1TAB20 PO; -LOSA1TAB69 PO
== END 2017-04-02 09:07 | disposition home or self-care (01) ==
PROVIDERS: ATTEND Family Medicine
DX: R53.1 Weakness (principal); R29.6 Repeated falls